=== PATIENT | female | born 1950 | race Two or more races ===

== ENCOUNTER 2023-06-06 14:33 | Inpatient (IN) | payer OTHER ==
[~2023-06-06] VITALS: Ht 149.9 cm; Wt 57.2 kg
[2023-06-06] MEDS ORDERED: GABAPENTIN800 M1 PO (15:25)
[2023-06-06] MEDS ORDERED: JANUMET XR 1001 EACH PO (15:25)
[2023-06-06] MEDS ORDERED: BACLOFEN10 MG PO (15:25)
[2023-06-06 16:55] LABS: HEMATOCRIT 36.3 % (36.0-45.00); HEMOGLOBIN 12.1 g/dL (12.0-15.00); MEAN CELL VOLUME 92.6 fL (80.00-100.00); MEAN CORPUSCULAR HEMOGLOBIN 30.8 pg (27.00-32.0); MEAN CORPUSCULAR HGB CONC 33.2 g/dl (32.0-36.0); PLATELET COUNT 207 K/uL (150-450); RED BLOOD COUNT 3.92 M/uL (4.00-6.00); RED CELL DISTRIBUTION WIDTH 13.8 % (11.5-14.5)
[2023-06-06 17:18] LABS: CALCIUM 9.9 mg/dL (8.5-10.1); CREATININE SERUM 0.73 mg/dL (0.55-1.02); GFR 78.15; POTASSIUM 4.39 mEq/L (3.5-5.1)
[2023-06-06 21:41] LABS: INR 1.04; PARTIAL THROMBOPLASTIN TIME 24.2 SECONDS (22.0-34.0); PROTHROMBIN TIME 10.9 SECONDS (9.0-11.5)
[2023-06-06 22:07] LABS: ALBUMIN 3.9 gm/dL (3.4-5.0); BILIRUBIN TOTAL 1.01 mg/dL (0.3-1.2); BILIRUBIN,CONJUGATED 0.49 mg/dL (0.0-0.2); BILIRUBIN,UNCONJUGATED 0.52 mg/dL (0.0-0.6); TOTAL PROTEIN 7.1 gm/dL (6.4-8.2)
[2023-06-07 00:37] LABS: PH,URINE 7.5 (5.0-8.0); URINE APPEARANCE Clear; URINE BILIRRUBIN Negative (NEGATIVE); URINE BLOOD NHT; URINE COLOR Yellow; URINE GLUCOSE Negative (NEGATIVE); URINE LEUKOCYTE Negative; URINE NITRATE Negative; URINE PROTEIN Negative (NEGATIVE)
[2023-06-07 00:38] LABS: URINE BACTERIA 32.7 uL (0.0-1933); URINE RBC 35.4 uL (0.0-20.8); URINE WBC 2.9 uL (0.0-23.2)
[2023-06-07 00:40] LABS: URINE EPITHELIAL CELLS 1.3 uL (0.0-38.8)
[2023-06-07 05:46] LABS: HEMATOCRIT 34.7 % (36.0-45.00); HEMOGLOBIN 11.9 g/dL (12.0-15.00); MEAN CORPUSCULAR HEMOGLOBIN 32.8 pg (27.00-32.0); MEAN CORPUSCULAR HGB CONC 34.2 g/dl (32.0-36.0); PLATELET COUNT 170 K/uL (150-450); RED BLOOD COUNT 3.61 M/uL (4.00-6.00); RED CELL DISTRIBUTION WIDTH 13.8 % (11.5-14.5)
[2023-06-07 05:47] LABS: ALBUMIN 3.4 gm/dL (3.4-5.0); BILIRUBIN TOTAL 1.02 mg/dL (0.3-1.2); CALCIUM 8.2 mg/dL (8.5-10.1); CREATININE SERUM 0.49 mg/dL (0.55-1.02); GFR 123.79; GLOBULINA 2.9 G/DL (2.4-3.5); POTASSIUM 3.72 mEq/L (3.5-5.1); TOTAL PROTEIN 6.3 gm/dL (6.4-8.2)
[2023-06-07 05:49] LABS: C-REACTIVE PROTEIN 4.44 MG/DL (0.00-0.29)
[2023-06-08 22:20] LABS: CHOL HDL RATIO 2.6 (0-5.0)
[2023-06-09 15:13] LABS: HEMOGLOBIN 10.2 g/dL (12.0-15.00); MEAN CELL VOLUME 95.8 fL (80.00-100.00); MEAN CORPUSCULAR HEMOGLOBIN 33.5 pg (27.00-32.0); PLATELET COUNT 155 K/uL (150-450); RED BLOOD COUNT 3.03 M/uL (4.00-6.00); RED CELL DISTRIBUTION WIDTH 13.9 % (11.5-14.5)
[2023-06-10 07:04] LABS: ALBUMIN 2.4 gm/dL (3.4-5.0); BILIRUBIN TOTAL 1.48 mg/dL (0.3-1.2); CALCIUM 7.9 mg/dL (8.5-10.1); GLOBULINA 2.9 G/DL (2.4-3.5); MAGNESIUM 1.8 mg/dL (1.8-2.4); POTASSIUM 3.09 mEq/L (3.5-5.1); TOTAL PROTEIN 5.3 gm/dL (6.4-8.2)
[2023-06-10 08:10] LABS: CREATININE SERUM 0.29 mg/dL (0.55-1.02); GFR 226.76; PHOSPHOROUS 1.5 mg/dL (2.5-4.9)
[2023-06-11 04:56] LABS: HEMATOCRIT 27.4 % (36.0-45.00); HEMOGLOBIN 9.6 g/dL (12.0-15.00); MEAN CELL VOLUME 91.2 fL (80.00-100.00); MEAN CORPUSCULAR HGB CONC 35.1 g/dl (32.0-36.0); PLATELET COUNT 192 K/uL (150-450)
[2023-06-11 05:36] LABS: ALBUMIN 2.4 gm/dL (3.4-5.0); BILIRUBIN TOTAL 0.84 mg/dL (0.3-1.2); CALCIUM 7.7 mg/dL (8.5-10.1); CREATININE SERUM 0.34 mg/dL (0.55-1.02); GFR 188.73; GLOBULINA 2.8 G/DL (2.4-3.5); MAGNESIUM 1.7 mg/dL (1.8-2.4); POTASSIUM 3.48 mEq/L (3.5-5.1); TOTAL PROTEIN 5.2 gm/dL (6.4-8.2)
[2023-06-11 07:24] LABS: PHOSPHOROUS 1.5 mg/dL (2.5-4.9)
[2023-06-11] MEDS ORDERED: LIPITOR40 M1 PO (15:37)
[2023-06-11] MEDS ORDERED: CALCIUM 500-VI1 EAC6 PO (15:37)
[2023-06-11] MEDS ORDERED: GABAPENTIN800 MG PO (15:37)
[2023-06-11] MEDS ORDERED: GLUMETZA1000 MG PO (15:38)
== END 2023-06-11 22:45 | disposition home or self-care (01) | DRG 440 ==
LOC: ER 14:34 → EDBD 15:01 → MEDJ 20:01
PROVIDERS: Emergency Medicine; General Practice; ADMIT Internal Medicine; ATTEND Internal Medicine
PROC: BW21YZZ Computerized Tomography (CT Scan) of Abdomen and Pelvis using Other Contrast (ICD-10-PCS; principal; 2023-06-06)
PROC: BF37ZZZ Magnetic Resonance Imaging (MRI) of Pancreas (ICD-10-PCS; 2023-06-07)
PROC: BW21YZZ Computerized Tomography (CT Scan) of Abdomen and Pelvis using Other Contrast (ICD-10-PCS; 2023-06-09)
DX: K85.90 Acute pancreatitis without necrosis or infection, unspecified (principal); K85.30 Drug induced acute pancreatitis without necrosis or infection; T38.3X1A Poisoning by insulin and oral hypoglycemic [antidiabetic] drugs, accidental (unintentional), initial encounter; E11.65 Type 2 diabetes mellitus with hyperglycemia; Z79.4 Long term (current) use of insulin; E78.5 Hyperlipidemia, unspecified; D64.9 Anemia, unspecified; E87.6 Hypokalemia

== ENCOUNTER 2024-01-17 09:03 | Outpatient (CLI) | payer OTHER ==
[~2024-01-17 09:03] MED LIST: BACLOFEN10 MG PO; CALCIUM 500-VI1 EAC6 PO; GABAPENTIN800 M1 PO; GABAPENTIN800 MG PO; GLUMETZA1000 MG PO; JANUMET XR 1001 EACH PO; LIPITOR40 M1 PO
[2024-01-17 10:28] LABS: CALCIUM 9.3 mg/dL (8.5-10.1); CHOL HDL RATIO 2.1 (0-5.0); CREATININE SERUM 0.56 mg/dL (0.55-1.02); GFR 105.82; POTASSIUM 3.96 mEq/L (3.5-5.1)
== END 2024-01-17 09:04 | disposition home or self-care (01) ==
LOC: LAB 09:03
PROVIDERS: ATTEND Internal Medicine Endocrinology, Diabetes & Metabolism
DX: E11.65 Type 2 diabetes mellitus with hyperglycemia (principal); E03.8 Other specified hypothyroidism; E78.2 Mixed hyperlipidemia

== ENCOUNTER 2024-03-07 07:18 | Outpatient (CLI) | payer OTHER | END 2024-03-07 07:24 | disposition home or self-care (01) | LOC: TOM 07:18 | PROVIDERS: ATTEND Internal Medicine Gastroenterology | DX: K85.80 Other acute pancreatitis without necrosis or infection (principal); R10.10 Upper abdominal pain, unspecified | CPT/HCPCS: 74177; Q9965 ==